=== PATIENT | male | born 1975 | race Caucasian/White ===

== ENCOUNTER 2024-05-31 15:15 | Outpatient (CLI) | payer OTHER, SELFPAY ==
--- NOTE | ~2024-05-31 | XR_ITS ---
EXAMINATION: [id number]_CR DATE: 05/31/2024 15:37 INDICATION: Midsternal chest pain TECHNIQUE: PA view of the chest, 3 views of the right ribs and 3 views of the left ribs were obtained . COMPARISON: Chest radiograph dated 03/16/2013 FINDINGS: Lungs are clear with no focal airspace opacities, pulmonary edema, pleural effusion or pneumothorax. Cardiomediastinal silhouette is normal. Bilateral ribs are normal with no evident rib fractures. IMPRESSION: 1. No rib fractures or acute intracranial process. Reviewed, dictated and finalized at location A.
== END 2024-05-31 15:16 | disposition home or self-care (01) ==
LOC: CHSIMG 15:20
PROVIDERS: PCP Nurse Practitioner; Visit Provider Nurse Practitioner
DX: R07.89 Other chest pain (principal)
CPT/HCPCS: 71111

== ENCOUNTER 2024-06-23 16:47 | Outpatient (CLI) | payer OTHER, SELFPAY ==
--- NOTE | ~2024-06-23 | XR_ITS ---
EXAMINATION: XR shoulder LT min 2V DATE: 06/23/2024 17:21 INDICATION: Left shoulder pain. TECHNIQUE: 4 views of left shoulder were obtained. COMPARISON: None. FINDINGS: Alignment is normal. No fracture. Glenohumeral joint is normal. There is mild acromioclavic ular joint osteoarthritis. IMPRESSION: 1. Mild left acromioclavicular joint osteoarthritis. Reviewed, dictated and finalized at location A. TRAINING SUPERVISOR
== END 2024-06-23 16:48 | disposition home or self-care (01) ==
LOC: CHSIMG 16:49
PROVIDERS: PCP Nurse Practitioner; Visit Provider Nurse Practitioner
DX: M19.012 Primary osteoarthritis, left shoulder (principal); M25.512 Pain in left shoulder
CPT/HCPCS: 73030

== ENCOUNTER 2024-06-29 16:55 | Outpatient (RCR) | payer OTHER, SELFPAY ==
--- NOTE | 2024-06-29 17:57 | PTOPEVAL1 ---
Assessment and note entered by Cindy Maldonado DPT Evaluation Information Assessment Status Evaluation Diagnosis L shoulder pain ICD-10 Condition Codes (PT) M25.512 Subjective Information Patient reports he has been having L shoulder pain at started at the beginning of the month. He reports he is unsure of what started the pain. 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 He reports he wore a sling for a week and that decreases pain but pain returns when sling is off. He reports work is accommodating and he has been able to avoid heavy activities. He reports pain with dressing, reaching to his back pocket and reaching over head. He reports pain is at the superior and posterior shoulder. He is to return to [facility] after PT. Reported Pain Level Pain Score 3: Self Report Assessment PT Clinical Summary Mr. Freeman is a 49 year old male who presents to PT with L shoulder pain. He demonstrates decreased L shoulder strength, decreased L shoulder ROM and impaired posture impairing his ability to dress, wash his back and reach over head. He has good tolerance to initial evaluation with improved mobility throughout treatment. He would benefit from skilled PT to address impairments and return to PLOF. Plan of Care Interventions Electrical Stimulation,Hot Pack/Cold Pack,Manual Therapy,Mechanical Traction,Neuro Re-education, Patient/Caregiver Educati,Therapeutic Activities, Therapeutic Exercise PT Services Indicated Yes Treatment Frequency and 2x weekly for 10 visits Duration These treatments will address the objective and functional deficits as defined above. The patient will be advanced safely and appropriately in order for the patient to progress towards his/her prior level of function. Additional exercises will be introduced and as well as a comprehensive home exercise program upon discharge, if needed, ?to ensure carryover of functional gains achieved in the clinic. This treatment plan has been reviewed and agreement upon by the patient.
--- NOTE | 2024-08-10 17:47 | OPREHPOC ---
Outpatient Therapy Plan of Care This is a Multidisciplinary Plan of Care that may contain components documented by all disciplines (PT, OT, and ST.) PT Problem 1 PT Problem #1 Knowledge Deficit PT Goal 1 Goal / Goal Update patient to demonstrate independence with HEP Target Visit 5 Progress Met PT Problem 2 PT Problem #2 Pain PT Goal 1 Goal / Goal Update 1. Patient to report highest pain at 2/10 Target Visit 10 Progress Not Met PT Problem 3 PT Problem #3 Impaired Range of Motion PT Goal 1 Goal / Goal Update Patient to demonstrate 160 deg of L shoulder flexion to return to reaching into cabinets at PLOF Target Visit 10 Progress Met PT Problem 4 PT Problem #4 Impaired Functional Mobility PT Goal 1 Goal / Goal Update 1. Patient to improve Quick[employer] scoring by 20% 2. Patient to report ability to put on a shirt with no increase in pain 3. Patient to report no increase in pain following work day Target Visit 10 Progress Partially Met
--- NOTE | 2024-08-10 17:47 | PTOPREEVAL ---
Assessment and note entered by JT File, PT Evaluation Information Assessment Status Re-evaluation Diagnosis L shoulder pain ICD-10 Condition Codes (PT) Pain in left shoulder M25.512 Subjective Information patient reports in general he feels better. however, he still has large spikes of pain at times in the L shoulder. he reports he continues to be on light duty at work. he has gotten the results of his MRI that shows no tears. he sees and ortho next week. Reported Pain Level Pain Score 2: Self Report Assessment PT Clinical Summary mr. miranda presents to skilled PT for his 10th skilled therapy visit. he presents today with decreased pain at rest, improved rom, and improved strength of the L shoulder. however, at times he still has spikes of intense pain. he has continued to remain on light duty at work, and is scheduled to see an ortho next week. he will hole therapy at this time, continue with HEP independent at home, and work to keep his inflammation of the L shoulder down until he sees the ortho. Plan of Care Interventions Electrical Stimulation,Hot Pack/Cold Pack,Manual Therapy,Mechanical Traction,Neuro Re-education, Patient/Caregiver Education,Therapeutic Activities ,Therapeutic Exercise PT Services Indicated Yes Treatment Frequency and hold and await instructions from ortho Duration These treatments will address the objective and functional deficits as defined above. The patient will be advanced safely and appropriately in order for the patient to progress towards his/her prior level of function. Additional exercises will be introduced and as well as a comprehensive home exercise program upon discharge, if needed, ?to ensure carryover of functional gains achieved in the clinic. This treatment plan has been reviewed and agreement upon by the patient.
== END 2024-09-27 23:59 | disposition home or self-care (01) ==
LOC: CHSPT 16:55
PROVIDERS: Visit Provider Nurse Practitioner
DX: M25.512 Pain in left shoulder (principal)
CPT/HCPCS: 97014; 97110; 97161; G0283

== ENCOUNTER 2024-08-07 10:40 | Outpatient (CLI) | payer OTHER, SELFPAY ==
--- NOTE | ~2024-08-07 | MR_ITS ---
MRI of the left shoulder Technique: Axial proton-density fat-sat images, coronal proton density fat-sat and T2 fat-sat images, and sagittal T1-weighted and T2 fat-sat images were acquired. Clinical History: Pain Findings: There is minimal degenerative changes AC joint, but there is prominent marrow edema at the distal clavicle and acromion. No subacromial spur. Coracoclavicular, coracoacromial, and coracohumera l ligaments are intact. Supraspinatus and infraspinatus tendons are intact. Subscapularis tendon is intact with mild tendinos is. Tendon of long head of the biceps is intact. No labral tear evident. There is mild thickening of the inferior glenohumeral ligament with minimal increased signal. No dege nerative change or effusion of the glenohumeral joint. No fluid distention of the subacromial/subdelt oid bursa. No muscle atrophy or edema. Impression: Extensive marrow edema of the distal clavicle and acromion. This could be reactive due to developing degenerative joint disease or possibly posttraumatic change, or possibly very early developing distal clavicular osteolysis. Correlate clinically. Possible adhesive capsulitis with mild thickening and increased signal of the inferior glenohumeral l igament. Reviewed, dictated and finalized at location M. WEB DEVELOPER Impression: Extensive marrow edema of the distal clavicle and acromion. This could be react jb due to developing degenerative joint disease or possibly posttraumatic taylor ge, or possibly very early developing distal clavicular osteolysis. Correlate c linically. Possible adhesive capsulitis with mild thickening and increased signal of the i nferior glenohumeral ligament.
== END 2024-08-07 10:41 | disposition home or self-care (01) ==
LOC: CHSIMG 10:42
PROVIDERS: PCP Nurse Practitioner; Visit Provider Nurse Practitioner
DX: M25.512 Pain in left shoulder (principal); M79.89 Other specified soft tissue disorders
CPT/HCPCS: 73221